=== PATIENT | male | born 1955 | race Caucasian/White ===

== ENCOUNTER 2020-10-26 16:38 | Outpatient (CLI) | payer BC ==
--- NOTE | 2020-10-26 16:59 | RAD ---
Exam: XR Foot Rt 3 View STANDARD HISTORY: Right foot pain and abscess. Wound to right foot. 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 There are prominent degenerative changes seen at the tarsal metatarsal joints and to a lesser extent involving the tarsal bones and the first metatarsal phalangeal joint. Small erosions seen at the medial aspect of the tarsometatarsal joint gr eat toe. No fracture or dislocation is seen. Posterior plantar calcaneal enthesophytes are identified. No osseous destruction is seen. Vascular calcifications are seen at the level of the ankl e and foot. Calcifications are seen in the region of the plantar aponeurosis. IMPRESSION: 1. No acute osseous abnormality. 2. Scattered degenerative changes greatest at the tarsometatarsal joints.
== END 2020-10-26 16:39 | disposition home or self-care (01) ==
LOC: SCSRAD 16:38
PROVIDERS: ATTEND Internal Medicine Rheumatology
DX: L03.115 Cellulitis of right lower limb (principal); M79.671 Pain in right foot; M10.9 Gout, unspecified; M19.071 Primary osteoarthritis, right ankle and foot

== ENCOUNTER 2021-10-02 14:55 | Emergency (ER) | payer BC ==
[~2021-10-02 14:55] MED LIST: Iopamidol-370 76% 500 ML 1 ML ONE
[2021-10-02 15:56] LABS: #Eosinphils 0.1 thou/uL (0.0-0.7); #Lymphocytes 0.8 thou/uL (1.20-3.40); #Neutrophils 6.5 thou/uL (1.40-6.50); %Basophils 0.2 % (0.0-1.0); %Eosinophils 1.3 % (0.0-10.0); %Lymphocytes 9.1 % (21.0-51.0); %Monocytes 12.1 % (0.0-10.0); %Neutrophils 77.3 % (42.0-75.0); Hemoglobin 9.3 g/dL (14.0-18.0); Mean Corpuscular HGB CONC 35.3 g/dL (32.0-36.0); Mean Corpuscular Hemoglobin 35.4 pg (27.0-31.0); Mean Platelet Volume 6.5 fL (7.4-10.4); Platelet Count 126 thou/uL (130-400); RBC Distribution Width 13.9 % (11.5-14.5); Red Blood Cell (RBC) Count 2.62 mill/uL (4.70-6.10); White Blood Cell (WBC) Count 8.5 thou/uL (4.8-10.8)
[2021-10-02 16:19] LABS: ALT (SGPT) 24 U/L (8-55); AST (SGOT) 18 U/L (5-34); Alkaline Phosphatase 51 U/L (40-110); Anion Gap 15 mmol/L (10-20); BUN (Urea Nitrogen) 21 mg/dL (8.4-25.7); Bilirubin, Total 0.8 mg/dL (0.2-1.2); Calc. Creatinine Clearance 0 mL/min (70-130); Calcium 8.6 mg/dL (7.8-10.44); Carbon Dioxide 24 mmol/L (23-31); Chloride 100 mmol/L (98-107); Globulin 2.9 g/dL (2.4-3.5); Glucose 245 mg/dL (80-115); Potassium 4.4 mmol/L (3.5-5.1); Protein, Total 5.9 g/dL (5.8-8.1); Sodium 135 mmol/L (136-145)
[2021-10-02] MEDS ORDERED: Albuterol 200 PUFF (6.7GM INHALER) ONE (16:22)
[2021-10-02] MEDS ORDERED: Azithromycin 250 MG TAB ONE (18:45)
[2021-10-02] MEDS ORDERED: cefTRIAXone\\ROCEPHIN 1 GM VIAL ONE (18:45)
[2021-10-02] MEDS ORDERED: Dexamethasone 10 MG/ML VIAL ONE (18:46)
== END 2021-10-02 19:50 | disposition home or self-care (01) ==
LOC: ERS 14:55
DX: U07.1 COVID-19 (principal); J12.82 Pneumonia due to coronavirus disease 2019; R09.02 Hypoxemia; I25.2 Old myocardial infarction; E11.9 Type 2 diabetes mellitus without complications; I10 Essential (primary) hypertension; Z79.4 Long term (current) use of insulin; Z79.84 Long term (current) use of oral hypoglycemic drugs; Z79.82 Long term (current) use of aspirin; Z79.899 Other long term (current) drug therapy
CPT/HCPCS: 36415; 71045; 71275; 80053; 83605; 83880; 84484; 85025; 85379; 87040; 93005; 94664; 94760; 96365; 96375; J0696; J1100; Q9967

== ENCOUNTER 2021-11-05 01:03 | Inpatient (IN) | payer BC, MEDICARE ==
[2021-11-05] MEDS ORDERED: cefTRIAXone\\ROCEPHIN 2 GM VIAL ONE (01:24)
[2021-11-05 01:32] LABS: #Eosinphils 0.5 thou/uL (0.0-0.7); #Lymphocytes 0.9 thou/uL (1.20-3.40); #Monocytes 1.1 thou/uL (0.11-0.59); #Neutrophils 7.9 thou/uL (1.40-6.50); %Basophils 0.3 % (0.0-1.0); %Eosinophils 4.5 % (0.0-10.0); %Lymphocytes 8.8 % (21.0-51.0); %Monocytes 10.3 % (0.0-10.0); Hemoglobin 9.6 g/dL (14.0-18.0); Mean Corpuscular HGB CONC 34.2 g/dL (32.0-36.0); Mean Corpuscular Hemoglobin 34.6 pg (27.0-31.0); Mean Platelet Volume 6.4 fL (7.4-10.4); Platelet Count 271 thou/uL (130-400); RBC Distribution Width 13.9 % (11.5-14.5); Red Blood Cell (RBC) Count 2.76 mill/uL (4.70-6.10); White Blood Cell (WBC) Count 10.4 thou/uL (4.8-10.8)
[2021-11-05 01:57] LABS: ALT (SGPT) 20 U/L (8-55); AST (SGOT) 16 U/L (5-34); Albumin 3.1 g/dL (3.4-4.8); Alkaline Phosphatase 55 U/L (40-110); Anion Gap 15 mmol/L (10-20); BUN (Urea Nitrogen) 18 mg/dL (8.4-25.7); Bilirubin, Total 0.8 mg/dL (0.2-1.2); Calc. Creatinine Clearance 0 mL/min (70-130); Carbon Dioxide 23 mmol/L (23-31); Chloride 104 mmol/L (98-107); Globulin 2.9 g/dL (2.4-3.5); Glucose 232 mg/dL (80-115); Potassium 4.5 mmol/L (3.5-5.1); Sodium 137 mmol/L (136-145)
[2021-11-05 02:17] LABS: CKMB 1.2 ng/mL (0-6.6)
[2021-11-05] MEDS ORDERED: Azithromycin 500 MG VIAL ONE (02:21)
[2021-11-05] MEDS ORDERED: Acetaminophen 325 MG TAB PO PRN (04:08)
[2021-11-05] MEDS ORDERED: Dextrose 50% Abboject 50 ML SYRINGE SLOW IVP PRN (04:08)
[2021-11-05] MEDS ORDERED: HumaLOG 300 UNITS/3 ML VIAL SC PRN (04:08)
[2021-11-05] MEDS ORDERED: Ondansetron PF 4 MG/2 ML Vial IVP PRN (04:08)
[2021-11-05] MEDS ORDERED: Dextrose 5% in Water 1,000 ML IV PRN (04:08)
[2021-11-05 04:09] LABS: Actual Bicarbonate (HCO3a) 19.9 mEq/L (22-28); Analyzer IN Cardio ER; Base Excess (BEa) -4.1 mEq/L (-2.0 to +3.0); Calcium, Ionized (arterial) 1.02 mmol/L (1.12-1.30); Carboxyhemoglobin (COHb) 0.3 gm% (0.0-3.0); Hemoglobin (Hb) 8.2 g/dL (14.0-18.0); O2 Tension (PaO2), arterial 63.9 mmHg (> 80.0); Potassium - ABG Lab 3.93 mmol/L (3.70-5.30); pH, Arterial 7.41 (7.35-7.45)
[2021-11-05] MEDS ORDERED: GUAIFENESIN SF SOLN 200 MG/10 ML UDCUP PO PRN (04:15)
[2021-11-05 04:54] LABS: Puncture Site RRA
[2021-11-05] MEDS ORDERED: Furosemide 40 MG/4 ML VIAL ONE ×2 (04:55→07:50)
[2021-11-05 04:56] LABS: Lactic Acid 1.3 mmol/L (0.5-2.2)
[2021-11-05] MEDS ORDERED: Lorazepam 2 MG/ML VIAL ONE ×2 (05:25→08:22)
[2021-11-05] MEDS ORDERED: Nicotine 14 MG PATCH TD SCH (06:00)
[2021-11-05] MEDS ORDERED: Nitroglycerin 2% Ointment 1 INCH/1 GM Packet ONE (06:04)
[2021-11-05] MEDS ORDERED: methylPREDNISolone Sod Succ/PF 125 MG/2 ML VIAL ONE (06:05)
[2021-11-05] MEDS ORDERED: VANCOMYCIN 2 GRAM/400 ML BAG 2 GM in Premix Bag 1 BAG IVPB SCH (06:30)
[2021-11-05] MEDS ORDERED: Albuterol 200 PUFF (6.7GM INHALER) ONE (06:41)
[2021-11-05] MEDS ORDERED: Nicotine 14 MG PATCH ONE (07:41)
[2021-11-05] MEDS ORDERED: Cefepime 1 GM VIAL ONE (07:50)
[2021-11-05] MEDS ORDERED: Aspirin Chewable 81 MG TAB ONE (07:50)
[2021-11-05] MEDS ORDERED: Famotidine 20 MG TAB ONE (07:50)
[2021-11-05] MEDS ORDERED: Prasugrel 10 MG TAB ONE (07:50)
[2021-11-05] MEDS ORDERED: glyBURIDE 5 MG TAB PO SCH (08:00)
[2021-11-05 08:03] LABS: SARS-CoV-2 NAA Rapid Test Not Detected (NotDetected)
[2021-11-05] MEDS: Apixaban 2.5 MG TAB PO SCH ×2 (08:17→20:19)
[2021-11-05] MEDS: metFORMIN 500 MG TAB PO SCH ×2 (08:17→17:48)
[2021-11-05] MEDS: Cefepime 1 GM in Sodium Chloride 0.9% 100 ML IVPB SCH ×2 (08:17→20:19)
[2021-11-05] MEDS ORDERED: Zinc Sulfate 220 MG CAP ONE (08:19)
[2021-11-05] MEDS: Lorazepam 2 MG/ML VIAL SLOW IVP PRN ×2 (08:35→21:04)
[2021-11-05] MEDS ORDERED: Prasugrel 10 MG TAB PO SCH (09:00)
[2021-11-05] MEDS ORDERED: Furosemide 40 MG/4 ML VIAL SLOW IVP SCH (09:00)
[2021-11-05] MEDS ORDERED: Aspirin 81 mg Enteric Coated Tablet PO SCH (09:00)
[2021-11-05] MEDS ORDERED: Zinc Sulfate 220 MG CAP PO SCH (09:00)
[2021-11-05] MEDS ORDERED: Famotidine 20 MG TAB PO SCH (09:00)
[2021-11-05 17:14] VITALS: BMI 26.4
[2021-11-05] MEDS: guaiFENesin/Codeine 200 mg/20 mg 10 ml Cup PO PRN ×2 (17:48→21:54)
[2021-11-05] MEDS ORDERED: VANCOMYCIN 1.25 GM/250 ML BAG 1.25 GM in Premix Bag 1 BAG IVPB SCH (18:00)
[2021-11-06 00:11] LABS: Legionella Urinary Ag Negative (Negative); Strep pneumo Urine Ag NEGATIVE (NEGATIVE)
[2021-11-06] MEDS ORDERED: Morphine 4 MG/ML VIAL SLOW IVP SCH (01:00)
[2021-11-06 03:43] LABS: #Lymphocytes 0.7 thou/uL (1.20-3.40); #Monocytes 1.4 thou/uL (0.11-0.59); #Neutrophils 12.7 thou/uL (1.40-6.50); %Eosinophils 0.1 % (0.0-10.0); %Lymphocytes 4.5 % (21.0-51.0); %Monocytes 9.7 % (0.0-10.0); %Neutrophils 85.7 % (42.0-75.0); Mean Corpuscular HGB CONC 33.8 g/dL (32.0-36.0); Mean Corpuscular Hemoglobin 34.4 pg (27.0-31.0); Mean Platelet Volume 6.8 fL (7.4-10.4); Platelet Count 345 thou/uL (130-400); RBC Distribution Width 14.1 % (11.5-14.5); White Blood Cell (WBC) Count 14.8 thou/uL (4.8-10.8)
[2021-11-06 04:06] LABS: ALT (SGPT) 23 U/L (8-55); AST (SGOT) 28 U/L (5-34); Albumin 3.1 g/dL (3.4-4.8); Alkaline Phosphatase 71 U/L (40-110); Anion Gap 19 mmol/L (10-20); BUN (Urea Nitrogen) 27 mg/dL (8.4-25.7); Bilirubin, Total 0.7 mg/dL (0.2-1.2); Calc. Creatinine Clearance 79 mL/min (70-130); Calcium 8.2 mg/dL (7.8-10.44); Carbon Dioxide 18 mmol/L (23-31); Chloride 103 mmol/L (98-107); Globulin 3.7 g/dL (2.4-3.5); Glucose 304 mg/dL (80-115); Potassium 4.4 mmol/L (3.5-5.1); Protein, Total 6.8 g/dL (5.8-8.1); Sodium 136 mmol/L (136-145)
[2021-11-06] MEDS ORDERED: Naloxone HCl 0.4 mg/ml Vial ONE (04:08)
[2021-11-06] MEDS ORDERED: Atropine Sulfate 1 mg/10 ml Syringe IVP SCH (04:15)
[2021-11-06] MEDS ORDERED: Atropine Sulfate 1 mg/10 ml Syringe ONE (04:16)
[2021-11-06 06:36] VITALS: TEMP 96.1
== END 2021-11-06 09:32 | disposition expired | DRG 177 ==
LOC: ERS 01:03 → ERHOLD 04:06 → IMCU/EMU 17:01
PROVIDERS: ADMIT Internal Medicine; ATTEND Hospitalist
PROC: 5A09357 Assistance with Respiratory Ventilation, Less than 24 Consecutive Hours, Continuous Positive Airway Pressure (ICD-10-PCS; principal; 2021-11-05)
DX: J15.6 Pneumonia due to other Gram-negative bacteria (principal); J96.01 Acute respiratory failure with hypoxia; U09.9 Post COVID-19 condition, unspecified; Z66 Do not resuscitate; E11.9 Type 2 diabetes mellitus without complications; E83.119 Hemochromatosis, unspecified; E78.5 Hyperlipidemia, unspecified; I25.10 Atherosclerotic heart disease of native coronary artery without angina pectoris; I11.0 Hypertensive heart disease with heart failure; I50.9 Heart failure, unspecified; Z96.659 Presence of unspecified artificial knee joint; Z96.619 Presence of unspecified artificial shoulder joint; I46.9 Cardiac arrest, cause unspecified; Z79.4 Long term (current) use of insulin; I25.2 Old myocardial infarction; Z79.82 Long term (current) use of aspirin; Z79.84 Long term (current) use of oral hypoglycemic drugs; Z95.5 Presence of coronary angioplasty implant and graft; Z99.81 Dependence on supplemental oxygen; Z79.899 Other long term (current) drug therapy; Z82.49 Family history of ischemic heart disease and other diseases of the circulatory system
CPT/HCPCS: 0240U; 36415; 36416; 36600; 71045; 71275; 80053; 82553; 82805; 83605; 83880; 84145; 84484; 85025; 87040; 87449; 87497; 87633; 87899; 93005; 94640; 94644; 94660; J0456; J0461; J0692; J0696; J1940; J2060; J2270; J2310; J2930; J3370; J3490; J7620